=== PATIENT | female | born 1970 | race Hispanic/Latino ===

== ENCOUNTER 2024-01-21 13:43 | Emergency (ER) | payer OTHER, BC ==
[~2024-01-21] VITALS: Ht 154.9 cm; Wt 73.9 kg
[~2024-01-21 13:43] MED LIST: CYCL10TA16 PO; ERGO400T7 PO; OMEGA 3 ETHYL PO; TRAM50TA4 PO
[2024-01-21] MEDS: DIAZEPAM 5 MG/ML 2 ML SYG IVP ONE (15:51)
[2024-01-21 15:59] VITALS: BP 157/96; PULSE 87; RESP 18; O2SAT 97
[2024-01-21] MEDS ORDERED: NAPR-1196 PO (16:25)
== END 2024-01-21 16:34 | disposition home or self-care (01) ==
LOC: EDH 13:43
DX: S13.4XXA Sprain of ligaments of cervical spine, initial encounter (principal); M54.50 Low back pain, unspecified; Z79.899 Other long term (current) drug therapy; Z90.49 Acquired absence of other specified parts of digestive tract; Z90.710 Acquired absence of both cervix and uterus; V89.2XXA Person injured in unspecified motor-vehicle accident, traffic, initial encounter; Y93.I9 Activity, other involving external motion; Y92.488 Other paved roadways as the place of occurrence of the external cause; Y99.8 Other external cause status
CPT/HCPCS: 99285; 70450; 96374; 72125; 71250; 74176; J3360

== ENCOUNTER 2024-03-23 17:17 | Emergency (ER) | payer BC, OTHER ==
[~2024-03-23] VITALS: Ht 154.9 cm; Wt 74.4 kg
[~2024-03-23 17:17] MED LIST changes: +NAPR-1196 PO
[2024-03-23] MEDS: ORPHENADRINE 60MG/2ML IM ONE (18:44)
[2024-03-23] MEDS: KETOROLAC 60 MG VIAL (30MG/ML) IM ONE (18:49)
[2024-03-23] MEDS ORDERED: CYCL10TA16 PO (19:09)
[2024-03-23] MEDS ORDERED: IBUP-2070 PO (19:09)
[2024-03-23] MEDS ORDERED: METH4TAB3 PO (19:13)
[2024-03-23 19:16] VITALS: BP 136/82; PULSE 86; RESP 14; O2SAT 99
== END 2024-03-23 19:20 | disposition home or self-care (01) ==
LOC: EDH 17:17
DX: M54.50 Low back pain, unspecified (principal); Z79.899 Other long term (current) drug therapy; Z90.710 Acquired absence of both cervix and uterus; Z90.49 Acquired absence of other specified parts of digestive tract
CPT/HCPCS: 99284; 72110; 96372 ×2; J1885; J2360